=== PATIENT | female | born 1955 | race Caucasian/White ===

== ENCOUNTER 2021-01-03 15:03 | Emergency (ER) | payer OTHER ==
[~2021-01-03] VITALS: Ht 167 cm; Wt 68.0 kg
[2021-01-03 15:25] LABS: BASOPHILS # (AUTO) 0.1 10^3/uL (0.0-0.1); BASOPHILS % (AUTO) 1 % (0-10); EOSINOPHILS # (AUTO) 0.2 10^3/uL (0.0-0.3); EOSINOPHILS % (AUTO) 2 % (0-10); HEMATOCRIT 38 % (35-52); HEMOGLOBIN 13.3 g/dL (11.5-16.0); LYMPHOCYTES # (AUTO) 1.8 10^3/uL (1.0-4.0); LYMPHOCYTES % (AUTO) 21 % (12-44); MEAN CORPUSCULAR HEMOGLOBIN 33 pg (25-34); MEAN CORPUSCULAR HGB CONC 35 g/dL (32-36); MEAN CORPUSCULAR VOLUME 96 fL (80-99); MEAN PLATELET VOLUME 9.1 fL (9.0-12.2); MONOCYTES # (AUTO) 0.6 10^3/uL (0.0-1.0); MONOCYTES % (AUTO) 8 % (0-12); NEUTROPHILS # (AUTO) 5.8 10^3/uL (1.8-7.8); NEUTROPHILS % (AUTO) 68 % (42-75); PLATELET COUNT 239 10^3/uL (130-400); WHITE BLOOD COUNT 8.5 10^3/uL (4.3-11.0)
[2021-01-03] MEDS ORDERED: ONDANSETRON 4 MG/2 ML (SDV) Z0FRAN IVP ONE (15:30)
--- NOTE | 2021-01-03 15:32 | ED Fall/Injury ---
General Chief Complaint: Trauma-Non Activation Stated Complaint: SHOULDER PAIN Source: patient Exam Limitations: no limitations History of Present Illness Date Seen by Provider: Jan 03, 2021 Time Seen by Provider: 15:30 Initial Comments To ER with reports of left shoulder pain as well as nausea vomiting and tingling in both fingers. She tripped while stepping down off [place] curb [place] and fell backwards hitting the back of her head and the backside of her left shoulder. She has a history of hyponatremia and typically runs around 130 on her sodium. She takes sodium tablets. She has not had those today nor has she eaten anything today. Occurred: just prior to arrival Severity: moderate Injuries/Pain Location: upper extremity Context: tripped Loss of Consciousness: brief (seconds) Associated Symptoms (Fall): Neck Pain (Left lateral) Allergies and Home Medications Allergies Coded Allergies: codeine (Verified Allergy, Unknown, 01/03/21) Home Medications Hydrocodone Bit/Acetaminophen 1 Tab Tab, 1 TAB PO Q4H PRN for PAIN-MODERATE (5- 7) Prescribed by: AGA SAWANT on 01/03/21 2115 Patient Home Medication List Home Medication List Reviewed: Yes Review of Systems Review of Systems Constitutional: see HPI Eyes: No Symptoms Reported Ears, Nose, Mouth, Throat: no symptoms reported Respiratory: no symptoms reported Cardiovascular: no symptoms reported Genitourinary: no symptoms reported Musculoskeletal: no symptoms reported Skin: no symptoms reported Psychiatric/Neurological: No Symptoms Reported Physical Exam Vital Signs Vital Signs - First Documented 01/03/21 15:08 Temp 37.0 Pulse 62 Resp 18 B/P (MAP) 125/76 (92) Pulse Ox 97 O2 Delivery Room Air Capillary Refill : Height, Weight, BMI Height: '" Weight: lbs. oz. kg; BMI Method: General Appearance: WD/WN, no apparent distress HEENT: PERRL/EOMI, normal ENT inspection Neck: normal inspection, tender lateral (Left side) Cardiovascular: other Respiratory: no respiratory distress, no accessory muscle use Gastrointestinal: normal bowel sounds, non tender, soft Extremities: normal range of motion, non-tender, other Neurologic/Psychiatric: alert, normal mood/affect, oriented x 3 Skin: normal color, warm/dry There is a large skin tear of the dorsal left forearm and elbow this skin was unrolled then covered to reapproximate the wound and held in place with Steri- Strips. The remainder was covered with antibiotic ointment then nonadherent gauze then gauze roll. She states that her tetanus is up-to-date. [place] Coma Score Best Eye Response: (4) Open Spontaneously Best Verbal Response: (5) Oriented Best Motor Response: (6) Obeys Commands [place] Total: 15 Progress/Results/Core Measures Results/Orders Lab Results Laboratory Tests Test 01/03/21 15:19 Range/Units White Blood Count 8.5 4.3-11.0 10^3/uL Red Blood Count 3.99 3.80-5.11 10^6/uL Hemoglobin 13.3 11.5-16.0 g/dL Hematocrit 38 35-52 % Mean Corpuscular Volume 96 80-99 fL Mean Corpuscular Hemoglobin 33 25-34 pg Mean Corpuscular Hemoglobin Concent 35 32-36 g/dL Red Cell Distribution Width 12.4 10.0-14.5 % Platelet Count 239 130-400 10^3/uL Mean Platelet Volume 9.1 9.0-12.2 fL Immature Granulocyte % (Auto) 1 % Neutrophils (%) (Auto) 68 42-75 % Lymphocytes (%) (Auto) 21 12-44 % Monocytes (%) (Auto) 8 0-12 % Eosinophils (%) (Auto) 2 0-10 % Basophils (%) (Auto) 1 0-10 % Neutrophils # (Auto) 5.8 1.8-7.8 10^3/uL Lymphocytes # (Auto) 1.8 1.0-4.0 10^3/uL Monocytes # (Auto) 0.6 0.0-1.0 10^3/uL Eosinophils # (Auto) 0.2 0.0-0.3 10^3/uL Basophils # (Auto) 0.1 0.0-0.1 10^3/uL Immature Granulocyte # (Auto) 0.1 0.0-0.1 10^3/uL Sodium Level 134 L 135-145 MMOL/L Potassium Level 3.8 3.6-5.0 MMOL/L Chloride Level 101 98-107 MMOL/L Carbon Dioxide Level 21 21-32 MMOL/L Anion Gap 12 5-14 MMOL/L Blood Urea Nitrogen 10 7-18 MG/DL Creatinine 0.81 0.60-1.30 MG/DL Estimat Glomerular Filtration Rate > 60 BUN/Creatinine Ratio 12 Glucose Level 131 H 70-105 MG/DL Calcium Level 9.1 8.5-10.1 MG/DL Corrected Calcium 9.3 8.5-10.1 MG/DL Total Bilirubin 0.4 0.1-1.0 MG/DL Aspartate Amino Transf (AST/SGOT) 12 5-34 U/L Alanine Aminotransferase (ALT/SGPT) 12 0-55 U/L Alkaline Phosphatase 69 40-136 U/L Total Protein 6.4 6.4-8.2 GM/DL Albumin 3.8 3.2-4.5 GM/DL My Orders Orders - AGA SAWANT APRN Ct Head/Cervical Spine Wo (01/03/21 15:12) Cbc With Automated Diff (01/03/21 15:12) Comprehensive Metabolic Panel (01/03/21 15:12) Ondansetron Injection (Zofran Injectio (01/03/21 15:30) Shoulder, Left, 3 Views (01/03/21 15:32) Medications Given in ED Current Medications Medications Dose Ordered Sig/Padmini Route Start Time Stop Time Status Last Admin Dose Admin Ondansetron HCl 4 mg ONCE ONCE IVP 01/03/21 15:30 01/03/21 15:31 DC 01/03/21 15:24 4 MG Vital Signs/I&O 01/03/21 15:08 Temp 37.0 Pulse 62 Resp 18 B/P (MAP) 125/76 (92) Pulse Ox 97 O2 Delivery Room Air Diagnostic Imaging Diagonstic Imaging: Xray Plain Films/CT/US/NM/MRI: other Comments NAME: SARAH QUINTANA [facility] REC#: [id number] PT STATUS: REG ER : 1955 PHYSICIAN: AGA SAWANT APRN ADMIT DATE: 01/03/21/ER Draft Date of Exam:01/03/21 SHOULDER, LEFT, 3 VIEWS INDICATION: Fall. Left clavicle pain. History of previous left shoulder replacement. COMPARISON: 08/19/2012 FINDINGS: Three radiographic views of the left shoulder were obtained. There is acute oblique oriented fracture through the junction of the middle and distal thirds of the clavicular shaft. There is inferior displacement of the distal fracture fragment by approximately 1.5 cm. AC joint is intact. Patient is status post previous left shoulder hemiarthroplasty. Humeral head component remains well-seated within the proximal humerus. There is also appropriate alignment of the humeral component within the chilkat glenoid. No unexpected radiopaque foreign bodies are seen. IMPRESSION: 1. New acute fracture of the left clavicle as described above. Dictated on workstation # [id number] Dict: 01/03/21 1620 Trans: 01/03/[address] [facility] [id number] Interpreted by: ALEXANDER OLIVER MD Electronically signed by: NAME: SARAH QUINTANA [facility] REC#: [id number] PT STATUS: REG ER : 1955 PHYSICIAN: AGA SAWANT APRN ADMIT DATE: 01/03/21/ER Draft Date of Exam:01/03/21 CT HEAD/CERVICAL SPINE WO CLINICAL INDICATION: Patient tripped on curb and fell. Patient complains of pain in the left shoulder with skin tear to left arm with bruising the left hand. Patient complains of nausea and dizziness with tingling in hands. Patient has left shoulder and clavicle pain. EXAM: Axial Head CT without IV contrast with sagittal and coronal reformations. Axial CT scan of the cervical spine with sagittal and coronal reformations. Auto Exposure Controls were utilized during the CT exam to meet ALARA standards for radiation dose reduction. COMPARISON: None. FINDINGS: Head CT: There is no evidence of acute cerebral infarct, intracranial hemorrhage, or gross mass effect. The brain parenchymal volume appears appropriate for patient's age. 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 There is normal dillard-white matter distinction. There is no significant midline shift or herniation. There is no evidence of hydrocephalus. The basal cisterns are unremarkable. The skull, extracranial soft tissue, and orbits are unremarkable. The paranasal sinuses are unremarkable. Temporal bones show no significant abnormality. Cervical spine: There is a nondisplaced fracture involving the posterior aspect of left first rib. There is no acute cervical spine fracture. There is grade 1 retrolisthesis of C6 on C7 with severe loss of disk space height, endplate sclerosis, and hypertrophic spurs. There is grade 1 anterolisthesis of C4 on C5 and C5 on C6. There is severe bilateral C6-C7 neural foramen narrowing due to uncinate spurs and facet arthropathy. There is at least mild central canal narrowing involving the C6-C7 level. There appears to be a C5-C6 posterior disk herniation. There is no other fracture seen on this exam. Emphysematous lung disease is seen. There is bilateral apical pleural parenchymal thickening/scarring. The neck soft tissue structures show no significant abnormality. IMPRESSION: 1: There is a nondisplaced fracture involving the posterior aspect of the left first rib. 2: There is no acute cervical spine fracture. There is multilevel cervical spine degenerative disease. 3: There is no intracranial hemorrhage or skull fracture. Dictated on workstation # [id number] Dict: 01/03/21 1619 Trans: 01/03/[address] [facility] [id number] Interpreted by: ALEISHA OSMAN MD Electronically signed by: Departure Communication (Admissions) She does have a systolic pressure on the right arm of about 70. On the left arm it is 130s. She has a weaker radial pulse on the right as compared to the left. She has no pain in the right arm. Has a normal appearance. Discussed with her the need to follow-up with primary care to evaluate for subclavian stenosis. I also called her primary care provider Dr. Kourtney Hemphill and left a voicemail with [facility] at [phone]. Impression Primary Impression: Clavicle fracture Additional Impressions: Suspected right subclavian stenosis Fracture of one rib, left side, initial encounter for closed fracture Skin tear Disposition: HOME, SELF-CARE Condition: Stable Departure-Patient Inst. Decision time for Depature: 16:26 Patient Instructions: Clavicle Fracture (DC) Add. Discharge Instructions: 1. Sling at all times. Call an orthopedist of your choosing tomorrow to make an appointment to be seen soon as they can see you. Pain medication as directed. Return to ER for any worsening. All discharge instructions reviewed with patient and/or family. Voiced understanding. Scripts Hydrocodone Bit/Acetaminophen (HYDROcodone/APAP 5 MG/325 MG TAB) 1 Tab Tab 1 TAB PO Q4H PRN for PAIN-MODERATE (5-7), #14 TAB Prov: AGA SAWANT TECHNICAL SALES REPRESENTATIVE 01/03/21 AGA SAWANT J TECHNICAL SALES REPRESENTATIVE Jan 03, 2021 15:32
[2021-01-03 15:42] LABS: ALBUMIN 3.8 GM/DL (3.2-4.5)
[2021-01-03 15:43] LABS: CHLORIDE 101 MMOL/L (98-107); POTASSIUM 3.8 MMOL/L (3.6-5.0); SODIUM 134 MMOL/L (135-145)
[2021-01-03 15:44] LABS: CALCIUM 9.1 MG/DL (8.5-10.1)
[2021-01-03 15:45] LABS: GLUCOSE 131 MG/DL (70-105); TOTAL PROTEIN 6.4 GM/DL (6.4-8.2)
[2021-01-03 15:46] LABS: CARBON DIOXIDE 21 MMOL/L (21-32)
[2021-01-03 15:47] LABS: BILIRUBIN,TOTAL 0.4 MG/DL (0.1-1.0)
[2021-01-03 15:48] LABS: ALKALINE PHOSPHATASE 69 U/L (40-136)
[2021-01-03 15:49] LABS: CREATININE SERUM 0.81 MG/DL (0.60-1.30); GFR ESTIMATED > 60
[2021-01-03 15:50] LABS: BUN/CREATININE RATIO 12
[2021-01-03 15:52] LABS: ALANINE AMINOTRANSFERASE 12 U/L (0-55)
--- NOTE | 2021-01-03 16:23 | Diagnostic Imaging Report ---
INDICATION: Fall. Left clavicle pain. History of previous left shoulder replacement. COMPARISON: 08/19/2012 FINDINGS: Three radiographic views of the left shoulder were obtained. There is acute oblique oriented fracture through the junction of the middle and distal thirds of the clavicular shaft. There is inferior displacement of the distal fracture fragment by approximately 1.5 cm. AC joint is intact. Patient is status post previous left shoulder hemiarthroplasty. Humeral head component remains well-seated within the proximal humerus. There is also appropriate alignment of the humeral component within the creek glenoid. No unexpected radiopaque foreign bodies are seen. IMPRESSION: 1. New acute fracture of the left clavicle as described above. Dictated by: Dictated on workstation # [id number]
--- NOTE | 2021-01-03 16:54 | Diagnostic Imaging Report ---
CLINICAL INDICATION: Patient tripped on curb and fell. Patient complains of pain in the left shoulder with skin tear to left arm with bruising the left hand. Patient complains of nausea and dizziness with tingling in hands. Patient has left shoulder and clavicle pain. EXAM: Axial Head CT without IV contrast with sagittal and coronal reformations. Axial CT scan of the cervical spine with sagittal and coronal reformations. Auto Exposure Controls were utilized during the CT exam to meet ALARA standards for radiation dose reduction. COMPARISON: None. FINDINGS: Head CT: There is no evidence of acute cerebral infarct, intracranial hemorrhage, or gross mass effect. The brain parenchymal volume appears appropriate for patient's age. 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 There is normal dillard-white matter distinction. There is no significant midline shift or herniation. There is no evidence of hydrocephalus. The basal cisterns are unremarkable. The skull, extracranial soft tissue, and orbits are unremarkable. The paranasal sinuses are unremarkable. Temporal bones show no significant abnormality. Cervical spine: There is a nondisplaced fracture involving the posterior aspect of left first rib. There is no acute cervical spine fracture. There is grade 1 retrolisthesis of C6 on C7 with severe loss of disk space height, endplate sclerosis, and hypertrophic spurs. There is grade 1 anterolisthesis of C4 on C5 and C5 on C6. There is severe bilateral C6-C7 neural foramen narrowing due to uncinate spurs and facet arthropathy. There is at least mild central canal narrowing involving the C6-C7 level. There appears to be a C5-C6 posterior disk herniation. There is no other fracture seen on this exam. Emphysematous lung disease is seen. There is bilateral apical pleural parenchymal thickening/scarring. The neck soft tissue structures show no significant abnormality. IMPRESSION: 1: There is a nondisplaced fracture involving the posterior aspect of the left first rib. 2: There is no acute cervical spine fracture. There is multilevel cervical spine degenerative disease. 3: There is no intracranial hemorrhage or skull fracture. Dictated by: Dictated on workstation # [id number]
[2021-01-03] MEDS ORDERED: ACHD5005 PO (17:12)
[2021-01-03 17:45] VITALS: BP 134/74
== END 2021-01-03 17:56 | disposition home or self-care (01) ==
LOC: ER 15:08
DX: S42.022A Displaced fracture of shaft of left clavicle, initial encounter for closed fracture (principal); S22.32XA Fracture of one rib, left side, initial encounter for closed fracture; W22.8XXA Striking against or struck by other objects, initial encounter
CPT/HCPCS: 70450; 72125; 73030; 80053; 85025; 99283; A4565; 36415